=== PATIENT | female | born 1995 | race Caucasian/White ===

== ENCOUNTER 2017-05-13 15:29 | Emergency (ER) | payer BC ==
[2017-05-13] MEDS ORDERED: NS 1,000 ML IV ONE (15:55)
[2017-05-13] MEDS ORDERED: KETOROLAC 30 MG/1 ML SDV IVP ONE (15:57)
[2017-05-13] MEDS ORDERED: DEXAMETHASONE 10 MG/ML VIAL IVP ONE (15:57)
--- NOTE | 2017-05-13 16:00 | EDPHY ---
H & P Smoking Status: Never smoked Time Seen by Provider: 05/13/17 15:43 HPI/ROS: CHIEF COMPLAINT: Sore throat, dysphagia HISTORY OF PRESENT ILLNESS: 22-year-old female presents to the emergency department by private vehicle complaining of sore throat and dysphagia since , 4 days. She was initially seen at urgent care and started on amoxicillin. She had a negative rapid strep test. She has been taking this as prescribed. She was getting better and they changed her to penicillin. She has been taking this three times daily as prescribed. She feels like her symptoms are getting much worse. She is having no difficulty swallowing. She felt warm today as if she had a fever but she does not have a thermometer. No rash. No chest pain or difficulty breathing. No rhinorrhea, nasal congestion or cough. No known ill contacts. No history of previous mono. No known exposure to mono. She denies fatigue. She denies abdominal pain or vomiting. REVIEW OF SYSTEMS: Constitutional: Subjective fevers. No chills. Eyes: No double or blurry vision. ENT: Sore throat and dysphagia as above Respiratory: No cough, no shortness of breath. Cardiac: No chest pain. Gastrointestinal: No abdominal pain, vomiting or diarrhea. Genitourinary: No dysuria. Musculoskeletal: No neck or back pain. Skin: No rashes. Neurological: No headache. (Marlys Mccrary) Past Medical/Surgical History: Negative (Tamra Mccrarya [place]) Social History: [employer] student (Marlys Mccrary) Physical Exam: General Appearance: Alert, no distress. Afebrile, tearful. Eyes: Pupils equal and round. Extraocular motions are all intact. ENT: Mouth: Mucous membranes moist. Muffled voice noted. Large 3+ enlarged tonsils larger on the left than the right. Erythematous. If no pustules. No vesicles. Small exudate bilaterally. No trismus. Anterior cervical lymphadenopathy palpated. Respiratory: No wheezing, rhonchi, or rales, lungs are clear to auscultation. Cardiovascular: Regular rate and rhythm. Gastrointestinal: Abdomen is soft and nontender, no masses, no rebound or guarding, bowel sounds normal. Neurological: Alert and oriented x 3, cranial nerves II through XII grossly intact Skin: Warm and dry, no rashes. Musculoskeletal: Nontender to palpate along the cervical, thoracic or lumbar spine. Neck is supple. No nuchal rigidity. Extremities: Full range of motion and no peripheral edema. Psychiatric: Patient is oriented X 3, there is no agitation. (Marlys Mccrary) Constitutional: Initial Vital Signs Temperature (C) 36.8 C 05/13/17 15:35 Heart Rate 118 H 05/13/17 15:35 Respiratory Rate 18 05/13/17 15:35 Blood Pressure 115/88 H 05/13/17 15:35 O2 Sat (%) 98 05/13/17 15:35 O2 Delivery Mode Room Air Allergies/Adverse Reactions: oseltamivir [From Tamiflu] Allergy (Verified 05/13/17 15:37) Home Medications: Medication Instructions Recorded Clindamycin HCl [Clindamycin] 300 mg PO TID #30 cap 05/13/17 Dexamethasone [Decadron] 8 mg PO DAILY #6 tab 05/13/17 Medical Decision Making ED Course/Re-evaluation: I evaluated this patient and examined the patient and discussed the physical findings, laboratory findings, and treatment plan with Marlys Mccrary. I am in agreement with the plan. I am concerned this patient may be developing a peritonsillar abscess although she does not have 1 now. We will give steroid comp panel antibiotics, fluids, pain control and attempt to safely get her home to follow up with ENT as an outpatient. (Andry Guy) 22-year-old female presents to the emergency department with sore throat dysphagia. Laboratory studies reveal normal white blood cell count. She had a positive Monospot. Chemistries were normal. The patient was given 10 mg of Decadron IV and 30 mg of Toradol IV. She also given 1 L of IV normal saline given her decreased p.o. intake because of her pain. The patient was feeling much better upon discharge. I did speak with on-call ENT physician assistant refinery operator who will see this patient in follow-up tomorrow. He agreed with changing the patient to clindamycin orally. He also recommended Decadron 8 mg for 2 additional days followed by 4 mg 2 additional days. Patient was comfortable with this plan and comfortable being discharged home. (Marlys Mccrary) Differential Diagnosis: Including but not limited to strep pharyngitis, mononucleosis, peritonsillar abscess, retropharyngeal abscess, viral syndrome (Marlys Mccrary) - Data Points Laboratory Results: Laboratory Results 05/13/17 15:45 05/13/17 15:45 05/13/17 05/13/17 05/13/17 15:45 15:45 15:45 WBC 9.47 10^3/uL 10^3/uL (3.80-9.50) RBC 4.78 10^6/uL 10^6/uL (4.18-5.33) Hgb 15.2 g/dL g/dL (12.6-16.3) Hct 42.6 % % (38.0-47.0) MCV 89.1 fL fL (81.5-99.8) MCH 31.8 pg pg (27.9-34.1) MCHC 35.7 g/dL g/dL (32.4-36.7) RDW 12.0 % % (11.5-15.2) Plt Count 205 10^3/uL 10^3/uL (150-400) MPV 9.8 fL fL (8.7-11.7) Neut % (Auto) 52.7 % % (39.3-74.2) Lymph % (Auto) 34.6 % % (15.0-45.0) Lee % (Auto) 11.3 % % (4.5-13.0) Eos % (Auto) 0.5 % L % (0.6-7.6) Baso % (Auto) 0.6 % % (0.3-1.7) Nucleat RBC Rel Count 0.0 % % (0.0-0.2) Absolute Neuts (auto) 4.98 10^3/uL 10^3/uL (1.70-6.50) Absolute Lymphs (auto) 3.28 10^3/uL H 10^3/uL (1.00-3.00) Absolute Monos (auto) 1.07 10^3/uL H 10^3/uL (0.30-0.80) Absolute Eos (auto) 0.05 10^3/uL 10^3/uL (0.03-0.40) Absolute Basos (auto) 0.06 10^3/uL 10^3/uL (0.02-0.10) Absolute Nucleated RBC 0.00 10^3/uL 10^3/uL (0-0.01) Immature Gran % 0.3 % % (0.0-1.1) Immature Gran # 0.03 10^3/uL 10^3/uL (0.00-0.10) Sodium 136 mEq/L mEq/L (134-144) Potassium 4.1 mEq/L mEq/L (3.5-5.2) Chloride 100 mEq/L mEq/L (97-110) Carbon Dioxide 23 mEq/l mEq/l (22-31) Anion Gap 13 mEq/L mEq/L (8-16) BUN 12 mg/dL mg/dL (7-23) Creatinine 0.8 mg/dL mg/dL (0.6-1.0) Estimated GFR > 60 Glucose 77 mg/dL mg/dL (70-100) Calcium 9.2 mg/dL mg/dL (8.5-10.4) Monoscreen POSITIVE H (NEGATIVE) Medications Given: Discontinued Medications Clindamycin (Clindamycin) 300 mg PO EDNOW ONE PRN Reason: Protocol Stop: 05/13/17 18:49 Last Admin: 05/13/17 18:57 Dose: 300 mg Dexamethasone (Decadron Injection) 10 mg IVP EDNOW ONE Stop: 05/13/17 15:58 Last Admin: 05/13/17 16:03 Dose: 10 mg Sodium Chloride (Ns) 1,000 mls @ 0 mls/hr IV ONCE ONE PRN Reason: Wide Open Stop: 05/13/17 15:56 Last Admin: 05/13/17 16:05 Dose: 1,000 mls Ketorolac Tromethamine (Toradol) 30 mg IVP EDNOW ONE Stop: 05/13/17 15:58 Last Admin: 05/13/17 16:03 Dose: 30 mg Departure - Departure Disposition: Home, Routine, Self-Care Clinical Impression: Mononucleosis Condition: Good Instructions: Mononucleosis (ED) Additional Instructions: Decadron daily for 2 more days. Clindamycin as directed for 10 days. Return if you develop increasing pain, difficulty swallowing, fever, abdominal pain, or if you feel worse in any way. You had a positive Monospot test. You should not do any contacts or any activity that may possibly put you at risk for blunt abdominal trauma. Referrals: Crow Dan MD [Medical Doctor] - 1 day without fail (ENT on-call, call to arrange for follow-up appointment to be seen tomorrow.) Stand Alone Forms: School Excuse Prescriptions: Clindamycin HCl [Clindamycin] 300 mg PO TID #30 cap Dexamethasone [Decadron] 8 mg PO DAILY #6 tab
[2017-05-13 16:13] LABS: ANION GAP 13 mEq/L (8-16); CALCIUM 9.2 mg/dL (8.5-10.4); CARBON DIOXIDE 23 mEq/l (22-31); CHLORIDE 100 mEq/L (97-110); CREATININE 0.8 mg/dL (0.6-1.0); GLOMERULAR FILTRATION RATE > 60; GLUCOSE 77 mg/dL (70-100); POTASSIUM 4.1 mEq/L (3.5-5.2); SODIUM 136 mEq/L (134-144)
[2017-05-13 16:15] LABS: % IMMATURE GRANULYOCYTES 0.3 % (0.0-1.1); ABSOLUTE IMMATURE GRANULOCYTES 0.03 10^3/uL (0.00-0.10); ADD DIFF? NO; ADD MORPH? NO; ADD SCAN? YES; FRAGMENT RBC FLAG 0 (0-99); HEMATOCRIT 42.6 % (38.0-47.0); HEMOGLOBIN 15.2 g/dL (12.6-16.3); LEFT SHIFT FLG 0 (0-99); LIPEMIA HEMOLYSIS FLAG 90 (0-99); MEAN CELL HEMOGLOBIN 31.8 pg (27.9-34.1); MEAN CELL HEMOGLOBIN CONCENTR. 35.7 g/dL (32.4-36.7); MEAN CELL VOLUME 89.1 fL (81.5-99.8); MEAN PLATELET VOLUME 9.8 fL (8.7-11.7); PLATELET CLUMPS FLAG 0 (0-99); PLATELET COUNT 205 10^3/uL (150-400); RED BLOOD CELL COUNT 4.78 10^6/uL (4.18-5.33)
[2017-05-13 16:24] LABS: ATYPICAL LYMPHOCYTE FLAG 140 (0-99)
[2017-05-13 16:57] VITALS: TEMP 98.8
[2017-05-13 17:06] LABS: SCAN NEGATIVE
[2017-05-13 18:18] VITALS: BP 112/70; PULSE 102; RESP 18; O2SAT 98
[2017-05-13] MEDS ORDERED: CLINDAMYCIN 150 MG CAP PO ONE (18:48)
== END 2017-05-13 19:00 | disposition home or self-care (01) ==
DX: B27.90 Infectious mononucleosis, unspecified without complication (principal)
CPT/HCPCS: 96374; J1100; J1885